=== PATIENT | male | born 1985 | race Caucasian/White ===

== ENCOUNTER 2017-10-13 19:35 | Emergency (ER) | END 2017-10-14 03:03 | disposition home or self-care (01) ==

== ENCOUNTER 2018-04-24 20:46 | Emergency (ER) | END 2018-04-24 22:10 | disposition home or self-care (01) ==

== ENCOUNTER 2018-10-01 19:58 | Emergency (ER) | payer MEDICAID ==
[~2018-10-01] VITALS: Ht 170.2 cm; Wt 103.4 kg
[~2018-10-01 19:58] MED LIST: ACET500C5 PO; ALBU8.5H8 INH; AZIT250T PO; CETI10CA PO; CYCL15DR13 BOTH EYES; DIPH25CA6 PO; DOXY100T20 PO; ERYTOPOI BOTH EYES; GUAI473L22 PO; IBUP-1542 PO; NAPH15DR69 LEFT EYE
[2018-10-01 20:06] VITALS: BP 138/89; PULSE 94; RESP 18; Ht 170.2 cm; Wt 103.4 kg
[2018-10-01] MEDS ORDERED: DIPHTH/TET/ACEL PERTUSS (ADULT) 0.5 ML VIAL IM* ONE (22:30)
[2018-10-01] MEDS ORDERED: LIDOCAINE 1% (MPF) 5 ML VIAL INFIL ONE (22:30)
[2018-10-01] MEDS ORDERED: IBUPROFEN 600 MG TAB PO ONE (22:30)
--- NOTE | 2018-10-01 22:55 | ERD ---
ER Documentation Chief Complaint Chief Complaint 1 inch lac on his R proximal thigh today HPI 33-year-old male presents for a right thigh laceration that he got at work. He states he was cutting wood and had a knife and slipped and cut his thigh. He does not know his tetanus status. The wound is located in the right anterior thigh area. He states that bleeding is controlled. He only has mild pain. ROS All systems reviewed and are negative except as per history of present illness. Medications Home Meds Active Scripts Ibuprofen* (Motrin*) 600 Mg Tab, 600 MG PO Q6, #30 TAB Prov:CHASE QUIÑONEZ 04/24/18 Doxycycline Hyclate* (Doxycycline Hyclate*) 100 Mg Tablet.dr, 100 MG PO BID for 5 Days, TAB Prov:CHASE QUIÑONEZ 04/24/18 Acetaminophen* (Tylophen*) 500 Mg Capsule, 1 CAP PO Q6H PRN for PAIN AND OR ELEVATED TEMP, #20 CAP Prov:CHRYSTAL PATHAK NP 10/14/17 Ibuprofen* (Motrin*) 600 Mg Tab, 600 MG PO Q6H PRN for PAIN AND OR ELEVATED TEMP, #30 TAB Prov:CHRYSTAL PATHAK NP 10/14/17 Azithromycin* (Zithromax*) 250 Mg Tablet, 250 MG PO .JessicaPACK DIRECTED, #6 TAB TAKE 500 MG (2 TABS) THE FIRST DAY THEN 250 MG (1 TAB) DAYS 2-5 Prov:CHRYSTAL PATHAK NP 10/14/17 Albuterol Sulfate* (Proair HFA*) 8.5 Gm Hfa.aer.ad, 2 PUFF INH Q4H PRN for WHEEZING AND SOB, #1 INHALER Prov:CHRYSTAL PATHAK NP 10/14/17 Cetirizine Hcl* (Zyrtec*) 10 Mg Capsule, 10 MG PO DAILY, #30 TAB.CHEW Prov:CHRYSTAL PATHAK NP 10/14/17 Guaifenesin-Codeine Phosphate* (Guaifenesin* AC Cough Syrup) 473 Ml Liquid, 10 ML PO Q4H PRN for COUGH, #120 ML Prov:CHRYSTAL PATHAK NP 1/17/18 Erythromycin* (Erythromycin* Ophthalmic) 1 Applic Oint, 1 APPLIC BOTH EYES QID for 7 Days, EA Prov:GIANCARLO GARDNER PA-C 05/25/16 Cyclopentolate Hcl (Cyclopentolate Hcl) 15 Ml Drops, 1 DROP BOTH EYES BID for 7 Days, #1 EA Prov:GIANCARLO GARDNER PA-C 05/25/16 Diphenhydramine Hcl (Benadryl) 25 Mg Cap, 25 MG PO BID for 7 Days, CAP Prov:GIANCARLO GARDNER PA-C 04/07/16 Naphazoline-Pheniramine* (Visine-A*) 15 Ml Drops, 2 DROP LEFT EYE Q4H PRN for RED EYES for 3 Days, EA Prov:GIANCARLO GARDNER PA-C 04/07/16 Allergies Allergies: Coded Allergies: No Known Allergy (Unverified , 04/07/16) PMhx/Soc Medical and Surgical Hx: pt denies Medical Hx History of Surgery: Yes (ABDOMINAL ) Anesthesia Reaction: No Hx Neurological Disorder: No Hx Respiratory Disorders: No Hx Cardiac Disorders: No Hx Psychiatric Problems: No Hx Miscellaneous Medical Probl: No Hx Alcohol Use: Yes (occassional) Hx Substance Use: No Hx Tobacco Use: No Physical Exam Vitals Vital Signs Date Temp Pulse Resp B/P (MAP) Pulse Ox O2 O2 Flow FiO2 Time Delivery Rate 10/01/18 98.6 94 18 138/89 96 20:06 (105) Physical Exam Const: No acute distress Resp: Clear to auscultation bilaterally Cardio: Regular rate and rhythm, no murmurs, bilateral dorsalis pedis pulses intact Skin: No petechiae or rashes Ext: Right anterior 2 cm laceration, no active bleeding. Neur: Awake and alert, bilateral lower extremity sensation intact Psych: Normal Mood and Affect Results 24 hrs Current Medications Medications Dose Sig/Sue Start Time Status Last (Trade) Ordered Route PRN Stop Time Admin Dose Reason Admin Ibuprofen 600 mg ONCE ONCE 10/01/18 DC 10/01/18 (Motrin) PO 22:30 10/01/18 22:16 22:31 Lidocaine 5 ml ONCE ONCE 10/01/18 DC (Xylocaine INFIL 22:30 10/01/18 1% (Mpf)) 22:31 Diphtheria/ 0.5 ml ONCE ONCE 10/01/18 DC 10/01/18 Tetanus/Acell IM* 22:30 10/01/18 22:33 Pertussis 22:31 (Adacel) Procedures/MDM Laceration Repair by me: Anesthesia: 1% lidocaine locally Location: Right anterior thigh Tendon/Joint/Nerves: No injury Foreign body: None detected after copious irrigation and exploration Technique: Simple Interrupted Sutures Complexity: No subcutaneous sutures/mucosal repair/edge excision Post Closure Length: 2 cm Patient's bleeding was easily controlled in the department and there is no indication of anemia. No evidence of compartment syndrome, neurologic injury, vascular injury, open joint, tendon laceration, or foreign body. Patient is appropriate for outpatient follow up. 48 hour wound check. Scar minimization instructions given. Medical Decision Making: Patient appear well on physical examination. There is a 2 cm laceration over the right anterior thigh. Patient was neurovascularly intact. Laceration site was repaired, see procedure note above. Patient advised to return to the ED in 48 hours for wound check. Return to the ED in 8-10 days for suture removal. Patient advised to follow up with PCP in 1-2 days. Patient advised to return to ED for new or worsening symptoms. Patient stable on discharge from the ED. Disclaimer: Inadvertent spelling and grammatical errors are likely due to EHR/dictation software use and do not reflect on the overall quality of patient care. Also, please note that the electronic time recorded on this note does not necessarily reflect the actual time of the patient encounter. Departure Diagnosis: Primary Impression: Laceration Condition: Fair Patient Instructions: Laceration, All Referrals: [facility] YOU HAVE RECEIVED A MEDICAL SCREENING EXAM AND THE RESULTS INDICATE THAT YOU DO NOT HAVE A CONDITION THAT REQUIRES URGENT TREATMENT IN THE EMERGENCY DEPARTMENT. FURTHER EVALUATION AND TREATMENT OF YOUR CONDITION CAN WAIT UNTIL YOU ARE SEEN IN YOUR DOCTORS OFFICE WITHIN THE NEXT 1-2 DAYS. IT IS YOUR RESPONSIBILITY TO MAKE AN APPOINTMENT FOR FOLOW-UP CARE. IF YOU HAVE A PRIMARY DOCTOR --you should call your primary doctor and schedule an appointment IF YOU DO NOT HAVE A PRIMARY DOCTOR YOU CAN CALL OUR PHYSICIAN REFERRAL HOTLINE AT IF YOU CAN NOT AFFORD TO SEE A PHYSICIAN YOU CAN CHOSE FROM THE FOLLOWING [facility] [address] [facility] [address] [place]. [facility] [address] [facility] [facility] [address] [facility] [address] [facility]. [facility] [address] [facility]. [facility] [address] Additional Instructions: Llame al doctor MAANA y brittaney merlyn JULIAN PARA DENTRO DE 1-2 VARGHESE.Dgale a la secretaria que nosotros le instruimos hacer esta julian.Avise o llame si sierra condicin se empeora antes de la julian. Regresa aqui si peor o no mejor. Return to ER in 48 hours for wound check. Return to ER in 8-10 days for suture removal. BILL PADILLA DO Oct 01, 2018 22:55
== END 2018-10-01 23:32 | disposition home or self-care (01) ==
LOC: FTE 19:58
DX: S71.111A Laceration without foreign body, right thigh, initial encounter (principal); W26.0XXA Contact with knife, initial encounter; Y92.89 Other specified places as the place of occurrence of the external cause; Z23 Encounter for immunization
CPT/HCPCS: 12001; 90715; Z7610; 90471

== ENCOUNTER 2018-10-03 19:07 | Emergency (ER) | payer MEDICAID ==
[~2018-10-03] VITALS: Ht 172.7 cm; Wt 102.8 kg
[2018-10-03 19:17] VITALS: BP 140/78; PULSE 84; RESP 19; Ht 172.7 cm; Wt 102.8 kg
--- NOTE | 2018-10-03 20:48 | ERD ---
ER Documentation Chief Complaint Chief Complaint RIGHT THIGH WOUND CHECK; SEEN LAST THURSDAY HPI 33-year-old male presents for recheck on her right thigh laceration sustained 2 days ago. He has no complaints of bleeding, redness, additional symptoms. ROS All systems reviewed and are negative except as per history of present illness. Medications Home Meds Active Scripts Ibuprofen* (Motrin*) 600 Mg Tab, 600 MG PO Q6, #30 TAB Prov:CHASE QUIÑONEZ Brittany 04/24/18 Doxycycline Hyclate* (Doxycycline Hyclate*) 100 Mg Tablet.dr, 100 MG PO BID for 5 Days, TAB Prov:CHASE QUIÑONEZ Brittany 04/24/18 Acetaminophen* (Tylophen*) 500 Mg Capsule, 1 CAP PO Q6H PRN for PAIN AND OR ELEVATED TEMP, #20 CAP Prov:CHRYSTAL PATHAK NP 10/14/17 Ibuprofen* (Motrin*) 600 Mg Tab, 600 MG PO Q6H PRN for PAIN AND OR ELEVATED TEMP, #30 TAB Prov:CHRYSTAL PATHAK NP 10/14/17 Azithromycin* (Zithromax*) 250 Mg Tablet, 250 MG PO .ZPACK DIRECTED, #6 TAB TAKE 500 MG (2 TABS) THE FIRST DAY THEN 250 MG (1 TAB) DAYS 2-5 Prov:CHRYSTAL PATHAK NP 10/14/17 Albuterol Sulfate* (Proair HFA*) 8.5 Gm Hfa.aer.ad, 2 PUFF INH Q4H PRN for WHEEZING AND SOB, #1 INHALER Prov:CHRYSTAL PATHAK NP 10/14/17 Cetirizine Hcl* (Zyrtec*) 10 Mg Capsule, 10 MG PO DAILY, #30 TAB.CHEW Prov:CHRYSTAL PATHAK NP 10/14/17 Guaifenesin-Codeine Phosphate* (Guaifenesin* AC Cough Syrup) 473 Ml Liquid, 10 ML PO Q4H PRN for COUGH, #120 ML Prov:CHRYSTAL PATHAK NP 10/14/17 Erythromycin* (Erythromycin* Ophthalmic) 1 Applic Oint, 1 APPLIC BOTH EYES QID for 7 Days, EA Prov:GIANCARLO GARDNER PA-C 05/25/16 Cyclopentolate Hcl (Cyclopentolate Hcl) 15 Ml Drops, 1 DROP BOTH EYES BID for 7 Days, #1 EA Prov:KENDRAGIANCARLOFlorencia GOLDSMITHC 05/25/16 Diphenhydramine Hcl (Benadryl) 25 Mg Cap, 25 MG PO BID for 7 Days, CAP Prov:GIANCARLO GARDNERC 04/07/16 Naphazoline-Pheniramine* (Visine-A*) 15 Ml Drops, 2 DROP LEFT EYE Q4H PRN for RED EYES for 3 Days, EA Prov:GIANCARLO GARDNER Alexandra GOLDSMITHC 04/07/16 Allergies Allergies: Coded Allergies: No Known Allergy (Unverified , 10/03/18) PMhx/Soc History of Surgery: Yes (ABDOMINAL ) Anesthesia Reaction: No Hx Neurological Disorder: No Hx Respiratory Disorders: No Hx Cardiac Disorders: No Hx Psychiatric Problems: No Hx Miscellaneous Medical Probl: No Hx Alcohol Use: Yes (occassional) Hx Substance Use: No Hx Tobacco Use: No Smoking Status: Never smoker FmHx Family History: No diabetes, No coronary disease, No other Physical Exam Vitals Vital Signs Date Temp Pulse Resp B/P (MAP) Pulse Ox O2 O2 Flow FiO2 Time Delivery Rate 10/03/18 99.1 84 19 140/78 96 19:17 (98) Physical Exam Const: No acute distress Head: Atraumatic Eyes: Normal Conjunctiva ENT: Normal External Ears, Nose and Mouth. Neck: Full range of motion. No meningismus. Resp: Clear to auscultation bilaterally Cardio: Regular rate and rhythm, no murmurs Abd: Soft, non tender, non distended. Normal bowel sounds Skin: No petechiae or rashes. Healing right thigh laceration without erythem a, bleeding. Back: No midline or flank tenderness Ext: No cyanosis, or edema Neur: Awake and alert Psych: Normal Mood and Affect Procedures/MDM Patient presents for recheck on a satisfactory healing right thigh laceration without evidence of deficits, ischemia, signs of infection or complications. Discharged home with recommendations for 5-day recheck for suture removal. Should recheck sooner for fevers, redness, new or worsening symptoms. Departure Diagnosis: Primary Impression: Encounter for wound re-check Condition: Stable Patient Instructions: Wound Check, Lac F/U (No Infection) Additional Instructions: cheque 5 shine para sacar puntos. LASHA SELF MD Oct 03, 2018 20:48
== END 2018-10-03 21:21 | disposition home or self-care (01) ==
LOC: FTE 19:07
DX: Z48.01 Encounter for change or removal of surgical wound dressing (principal)
CPT/HCPCS: 99281

== ENCOUNTER 2018-12-10 09:25 | Emergency (ER) | payer MEDICAID ==
[~2018-12-10] VITALS: Wt 101.7 kg
[2018-12-10 09:35] VITALS: BP 172/92; PULSE 92; RESP 17
[2018-12-10] MEDS ORDERED: KETOROLAC 30 MG INJ IM STA (10:20)
--- NOTE | 2018-12-10 10:22 | ERD ---
ER Documentation Chief Complaint Chief Complaint RIGHT KNEE PAIN X2 DAYS, NO INJURY, PT DOES CONSTRUCTION JOB HPI Patient is a 33-year-old male presents the ER for concerns of right knee pain times 2 days. Patient denied falls or trauma. 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 Patient does wear kneepads. Patient denies fevers or chills. Denies any previous falls or trauma. Patient states he been taking Tylenol for alleviation of pain. ROS All systems reviewed and are negative except as per history of present illness. Medications Home Meds Active Scripts Acetaminophen with Codeine (Acetaminophen-Cod #3 Tablet) 1 Each Tablet, 1 TAB PO Q6H PRN for PAIN, #7 TAB Prov:YUKO PUGH PA-C 12/10/18 Ibuprofen* (Motrin*) 600 Mg Tab, 600 MG PO Q6, #30 TAB Prov:YUKO PUGH PA-C 12/10/18 Ibuprofen* (Motrin*) 600 Mg Tab, 600 MG PO Q6, #30 TAB Prov:CHASE QUIÑONEZ 04/24/18 Doxycycline Hyclate* (Doxycycline Hyclate*) 100 Mg Tablet.dr, 100 MG PO BID for 5 Days, TAB Prov:CHASE QUIÑONEZ 04/24/18 Acetaminophen* (Tylophen*) 500 Mg Capsule, 1 CAP PO Q6H PRN for PAIN AND OR ELEVATED TEMP, #20 CAP Prov:CHRYSTAL PATHAK NP 10/14/17 Ibuprofen* (Motrin*) 600 Mg Tab, 600 MG PO Q6H PRN for PAIN AND OR ELEVATED TEMP, #30 TAB Prov:CHRYSTAL PATHAK NP 10/14/17 Azithromycin* (Zithromax*) 250 Mg Tablet, 250 MG PO .JessicaPACK DIRECTED, #6 TAB TAKE 500 MG (2 TABS) THE FIRST DAY THEN 250 MG (1 TAB) DAYS 2-5 Prov:CHRYSTAL PATHAK NP 10/14/17 Albuterol Sulfate* (Proair HFA*) 8.5 Gm Hfa.aer.ad, 2 PUFF INH Q4H PRN for WHEEZING AND SOB, #1 INHALER Prov:CHRYSTAL PATHAK NP 10/14/17 Cetirizine Hcl* (Zyrtec*) 10 Mg Capsule, 10 MG PO DAILY, #30 TAB.CHEW Prov:ERICKACHRYSTAL HUITRON [employer]OP FOREMAN 10/14/17 Guaifenesin-Codeine Phosphate* (Guaifenesin* AC Cough Syrup) 473 Ml Liquid, 10 ML PO Q4H PRN for COUGH, #120 ML Prov:CHRYSTAL PATHAK [employer] 10/14/17 Erythromycin* (Erythromycin* Ophthalmic) 1 Applic Oint, 1 APPLIC BOTH EYES QID for 7 Days, EA Prov:PROGIANCARLO GUADALUPE-C 05/25/16 Cyclopentolate Hcl (Cyclopentolate Hcl) 15 Ml Drops, 1 DROP BOTH EYES BID for 7 Days, #1 EA Prov:GIANCARLO GARDNER-C 05/25/16 Diphenhydramine Hcl (Benadryl) 25 Mg Cap, 25 MG PO BID for 7 Days, CAP Prov:GIANCARLO GARDNER-C 04/07/16 Naphazoline-Pheniramine* (Visine-A*) 15 Ml Drops, 2 DROP LEFT EYE Q4H PRN for RED EYES for 3 Days, EA Prov:GIANCARLO GARDNER-C 04/07/16 Allergies Allergies: Coded Allergies: No Known Allergy (Unverified , 10/03/18) PMhx/Soc History of Surgery: Yes (ABDOMINAL ) Anesthesia Reaction: No Hx Neurological Disorder: No Hx Respiratory Disorders: No Hx Cardiac Disorders: No Hx Psychiatric Problems: No Hx Miscellaneous Medical Probl: No Hx Alcohol Use: Yes (occassional) Hx Substance Use: No Hx Tobacco Use: No FmHx Family History: No diabetes Physical Exam Vitals Vital Signs Date Temp Pulse Resp B/P (MAP) Pulse Ox O2 O2 Flow FiO2 Time Delivery Rate 12/10/18 99.0 92 17 172/92 98 09:35 (118) Physical Exam GENERAL: Well-developed, well-nourished male. Appears in no acute distress. HEAD: Normocephalic, atraumatic. EYES: Pupils are equally reactive bilaterally. EOMs grossly intact. No conjunctival erythema. ENT: Moist mucous membranes. No uvula deviation. No kissing tonsils. NECK: Supple. No meningismus. Normal range of motion of the neck. LUNG: Clear to auscultation bilaterally. No rhonchi, wheezing, rales or coarse breath sounds. HEART: Regular rate and rhythm. No murmurs, rubs or gallops. EXTREMITIES: Equal pulses bilaterally. No peripheral clubbing, cyanosis or edema. No unilateral leg swelling. NEUROLOGIC: Alert and oriented. Moving all four extremities without any difficulty. Normal speech. SKIN: Normal color. Warm and dry. No rashes or lesions. RLE: No deformity, erythema, ecchymosis. Swelling noted over the anterior kneecap and tibial tuberosity. Skin is intact. Decreased range of motion secondary to pain. Nontender to palpation of the distal tibia/fibula. Sensation intact to light touch. Neurovascularly intact. (Able to plantarflex, dorsiflex, essie foot, invert foot, raise big toe.) 2+ DP and DT pulses. Results 24 hrs Current Medications Medications Dose Sig/Sue Start Time Status Last (Trade) Ordered Route PRN Stop Time Admin Dose Reason Admin Ketorolac 30 mg ONCE STAT 12/10/18 DC 12/10/18 Tromethamine IM 10:20 10:28 (Toradol) 12/10/18 10:21 Procedures/MDM ED COURSE: The patient was stable throughout ED course. I kept the patient and/or family informed of laboratory and diagnostic imaging results throughout the ED course. DIAGNOSTIC IMAGING: Read by radiologist. Patient: ONIEL LOOMIS : 1985 Age: 33 Sex: M MR #: [id number] DOS: 12/10/18 1020 Ordering MD: YUKO PUGH PA-C Location: [facility] Room/Bed: PROCEDURE: RIGHT knee x-ray CLINICAL INDICATION: Knee pain TECHNIQUE: AP, lateral and tunnel views of the knee were obtained. COMPARISON: None FINDINGS: There is normal mineralization. No acute fracture or dislocation is seen. There is fragmentation of the tibial tubercle, suspicious for old Johanny- Schlatter disease. There is no joint effusion. There are no significant degenerative changes. There is no significant soft tissue swelling. RPTAT: AA IMPRESSION: No acute fracture. Fragmentation of the tibial tubercle, suspicious for old [place]-Schlatter disease. .Homer Johnson MD, MD Date Time Electronically viewed and signed by .Homer Johnson MD, MD on 12/10/2018 10:48 .S/ CC: YUKO PUGH PA-C [id number] PROCEDURES: SPLINT APPLICATION: The patient was verbally consented at bedside prior to splint application. Patient was explained the risks, benefits and alternatives to this procedure. The patient was neurovascularly intact prior to and status post application of the splint. The patient tolerated the procedure well with no complications. Splint type: ERNESTO wrap Extremity: R knee Indication: Right knee bursitis MEDICATIONS GIVEN: Toradol Patient tolerated medication well with no adverse reactions. Patient reported improvement in pain. MEDICAL DECISION MAKING: This is a 33-year-old male presents ER for concerns of right knee pain times 2 days. 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 Vital signs were reviewed. Patient was afebrile. X-ray imaging was unremarkable. No evidence of fracture dislocation. Patient will be given Ernesto wrap. Patient was given Toradol here in for pain. Patient reported improvement in pain. Patient will be given a prescription for ibuprofen as well as Tylenol No. 3. Patient was not to take this medication when driving or operating machinery. At this time, patient's presentation is most consistent with bursitis. Low suspicion for femur fracture, patella fracture, tibial plateau fracture, septic joint, gout, popliteal cyst, prepatellar bursitis, patellofemoral syndrome, patellar tendinitis, Johanny-Schlatter disease, osteoarthritis, osteomyelitis, DVT or compartment syndrome. At this time, unable to rule out any meniscus and knee ligament injuries. Patient was nontoxic, [id number] prior to discharge. PRESCRIPTIONS: Ibuprofen, Tylenol No. 3 DISCHARGE: At this time, patient is stable for discharge and outpatient management. RICE therapy and ROM exercises were advised to avoid stiffness. I have instructed the patient to follow-up with his/her primary care physician in 1-2 days. I have discussed with the patient the possibility of needing to see an records specialist for further workup and imaging if the pain persists. I have instructed the patient to promptly return to the ER for any new or worsening symptoms including increased pain, swelling, redness, warmth or fever. The patient and/or family expressed understanding of and agreement with this plan. All questions were answered. Home care instructions were provided. Patients blood pressure was elevated (>120/80) but appears stable without evidence of hypertensive emergency, hypertensive urgency or end-organ failure. I had discussion with the patient about the risks of hypertension. I have advised the patient to follow up with his/her primary care physician for outpatient monitoring and treatment for hypertension in 2-3 days. I have instructed the patient to return to the ER for any new or worsening symptoms including chest pain, shortness of breath, headache, blurred vision, confusion, nausea, vomiting or LOC. Disclaimer: Inadvertent spelling and grammatical errors are likely due to EHR/dictation software use and do not reflect on the overall quality of patient care. Also, please note that the electronic time recorded on this note does not necessarily reflect the actual time of the patient encounter. Departure Diagnosis: Primary Impression: Knee pain Chronicity: acute Laterality: unspecified laterality Qualified Codes: M25.569 - Pain in unspecified knee Condition: Stable Patient Instructions: Bursitis Referrals: [facility] YOU HAVE RECEIVED A MEDICAL SCREENING EXAM AND THE RESULTS INDICATE THAT YOU DO NOT HAVE A CONDITION THAT REQUIRES URGENT TREATMENT IN THE EMERGENCY DEPARTMENT. FURTHER EVALUATION AND TREATMENT OF YOUR CONDITION CAN WAIT UNTIL YOU ARE SEEN IN YOUR DOCTORS OFFICE WITHIN THE NEXT 1-2 DAYS. IT IS YOUR RESPONSIBILITY TO MAKE AN APPOINTMENT FOR FOLOW-UP CARE. IF YOU HAVE A PRIMARY DOCTOR --you should call your primary doctor and schedule an appointment IF YOU DO NOT HAVE A PRIMARY DOCTOR YOU CAN CALL OUR PHYSICIAN REFERRAL HOTLINE AT IF YOU CAN NOT AFFORD TO SEE A PHYSICIAN YOU CAN CHOSE FROM THE FOLLOWING [facility] [address] [facility] [address] [facility] [address] [facility] [address] [facility] [address] [facility]. [facility] [address] [facility]. [facility] YOU HAVE RECEIVED A MEDICAL SCREENING EXAM AND THE RESULTS INDICATE THAT YOU DO NOT HAVE A CONDITION THAT REQUIRES URGENT TREATMENT IN THE EMERGENCY DEPARTMENT. FURTHER EVALUATION AND TREATMENT OF YOUR CONDITION CAN WAIT UNTIL YOU ARE SEEN IN YOUR DOCTORS OFFICE WITHIN THE NEXT 1-2 DAYS. IT IS YOUR RESPONSIBILITY TO MAKE AN APPOINTMENT FOR FOLOW-UP CARE. IF YOU HAVE A PRIMARY DOCTOR --you should call your primary doctor and schedule and appointment IF YOU DO NOT HAVE A PRIMARY DOCTOR YOU CAN CALL OUR PHYSICIAN REFERRAL HOTLINE AT . IF YOU CAN NOT AFFORD TO SEE A PHYSICIAN YOU CAN CHOSE FROM THE FOLLOWING [facility]: [facility] [address] [place] [address] [facility] [address] [place] [address] [facility] + [facility] [address] [place] [address] Additional Instructions: Follow up with records specialist. Call your primary care doctor TOMORROW for an appointment during the next 1-2 days.See the doctor sooner or return here if your condition worsens before your appointment time. YUKO PUGH PA-C Dec 10, 2018 10:22
[2018-12-10] MEDS ORDERED: ACET1TAB40 PO (10:53)
[2018-12-10] MEDS ORDERED: IBUP-1542 PO (10:53)
== END 2018-12-10 11:07 | disposition home or self-care (01) ==
LOC: FTE 09:25
DX: M25.561 Pain in right knee (principal)
CPT/HCPCS: 73562; 96372; J1885; Z7502